=== PATIENT | male | born 2000 | race Caucasian/White ===

== ENCOUNTER 2021-06-20 16:41 | Emergency (ER) | payer OTHER, BC, SELFPAY ==
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
[2021-06-20 18:14] VITALS: BP 143/79; PULSE 65; RESP 16; TEMP 36.4; O2SAT 100; BMI 19.3
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
[2021-06-20] MEDS: Ibuprofen 600 MG TABLET PO (22:59)
== END 2021-06-20 23:39 | disposition home or self-care (01) ==
PROVIDERS: Emergency Provider Student in an Organized Health Care Education/Training Program
DX: S39.012A Strain of muscle, fascia and tendon of lower back, initial encounter (principal); M25.512 Pain in left shoulder; M25.511 Pain in right shoulder; V43.62XA Car passenger injured in collision with other type car in traffic accident, initial encounter; Y93.9 Activity, unspecified; Y92.410 Unspecified street and highway as the place of occurrence of the external cause; Y99.9 Unspecified external cause status; Z79.899 Other long term (current) drug therapy
CPT/HCPCS: 73030; 99283

== ENCOUNTER 2024-07-09 15:46 | Outpatient (AMB) | payer OTHER, SELFPAY ==
--- OUTSIDE RECORDS SUMMARY | 2024-07-09 15:48 | XMS_ITS | Encounter Summary ---
Author Organization [facility] Address [address] [place] [phone] Phone Care Team Providers Care Ice Delivery Driver Name Role Phone Elyssa Anderson MD Primary Care Provider [phone] Encounter Details Date Type Department Care Team (Late st Contact Info) Description 10/05/2016 Conversion Encounter [facility] [place] [address] [place] [address] Social History Tobacco Use Types Packs/Day Years Used Date Smoking Tobacco: Never Comments:Never smoker Sex and Gender Information Value Date Recorded Sex Assigned at Not on file Legal Sex Male 4:56 PM EDT Gender Identity Not on file Sexual Orientation Not on file documented as of this encounter Plan of Treatment Not on file documented as of this encounter Visit Diagnoses Not on filedocumented in this encounter Care Teams Ice Delivery Driver Relationship Specialty Start Date End Date Elyssa Anderson MD [address] [place] [address] PCP - General 09/29/16 05/30/22 documented as of this encounter
--- OUTSIDE RECORDS SUMMARY | 2024-07-09 15:48 | XMS_ITS | Encounter Summary ---
Author Organization [facility] Address [address] [place] [address] Phone Care Team Providers Care Rug Cleaning Supervisor Name Role Phone Elyssa Anderson MD Primary Care Provider [phone] Encounter Details Date Type Department Care Team (Late st Contact Info) Description 08/09/2011 [place] [facility] [place] [address] [place] [address] Family Medicine, Physician [address] [place], [place] [phone] Social History Tobacco Use Types Packs/Day Years Used Date Smoking Tobacco: Never Assessed Sex and Gender Information Value Date Recorded Sex Assigned at Not on file Legal Sex Male 4:56 PM EDT Gender Identity Not on file Sexual Orientation Not on file documented as of this encounter Plan of Treatment Not on file documented as of this encounter Visit Diagnoses Not on filedocumented in this encounter Care Teams Rug Cleaning Supervisor Relationship Specialty Start Date End Date Elyssa Anderson MD [address] [place] [address] [place] [address] PCP - General 09/29/16 05/30/22 documented as of this encounter
--- OUTSIDE RECORDS SUMMARY | 2024-07-09 15:48 | XMS_ITS | Encounter Summary ---
Author Organization [facility] Address [address] [place] [phone] Phone Care Team Providers Care Seo Consultant Name Role Phone Elyssa Anderson MD Primary Care Provider Encounter Details Date Type Department Care Team (Late st Contact Info) Description 07/18/2016 [place] [facility] [facility] [place] [address] [place] [address] Family Medicine, Physician [address] [place], [place] [phone] Social History Tobacco Use Types Packs/Day Years [...] on filedocumented in this encounter Care Teams Seo Consultant Relationship Specialty Start Date End Date Elyssa Anderson MD [address] [place] [address] PCP - General 09/29/16 05/30/22 documented as of this encounter
--- OUTSIDE RECORDS SUMMARY | 2024-07-09 15:48 | XMS_ITS | Encounter Summary ---
Author Organization [facility] Address [address] [place] [address] Phone Care Team Providers Care Manager Rfid Name Role Phone Elyssa Anderson MD Primary Care Provider [phone] Encounter Details Date Type Department Care Team (Late st Contact Info) Description 05/31/2009 Documentation [facility] [place] [address] [place] [address] Family Medicine, Physician [address] [place], [place] [phone] Social History Tobacco Use Types Packs/Day Years [...] on filedocumented in this encounter Care Teams Manager Rfid Relationship Specialty Start Date End Date Elyssa Anderson MD [address] [place] [address] [place] [address] PCP - General 09/29/16 05/30/22 documented as of this encounter
--- OUTSIDE RECORDS SUMMARY | 2024-07-09 15:48 | XMS_ITS | Clinical Summary ---
Author Organization [facility] Address [address] [place] [address] Phone Care Team Providers Care Machine Stone Polisher Apprentice Name Role Phone Unavailable Primary Care Provider Unavailabl e Allergies No known active allergies Medications amoxicillin 500 MG tabletIndicatio ns:Mitral valve prolapse Take 4 tablets (2,000 mg total) by mouth as needed (1 hour prior to dental appointment) for up to 1 dose. 4 tablet 4 10/22/2019 Active Active Problems Problem Noted Date Diagnosed Date Anxiety disorder 12/05/2019 Anxiety 12/04/2019 Joint hyperextensibility of multiple sites 09/27 Overview (09/27/2018): Not a bother Pectus excavatum 09/27/2018 Overview (09/27/2018): Not a problem Mitral valve prolapse 10/19/2017 Overview (10/22/2019): Dental prophylaxis recommended Assessment & Plan (09/30/2018 10:00 PM EDT): To see Dr. Galarza again soon. He said the [place] score is only 3, but has at least a 6 based on thumb and wrist signs, pectus, MVP, and facial features. Attention deficit hyperactiv ity disorder (ADHD), combined type 11/19/2013 Assessment & Plan (09/27/2018 2:16 PM EDT): Controls it without meds, but ?if ADD got in the way. Stay away from artificial food coloring. See me for follow up in about 4 months. Immunizations Immunization Administration Dates Next Due DTaP 5 06/20/2004, 1,1999,09/26,1999 H1N1 02/08/2009,01/07/2009 HPV, Quadrivalent 01/23/2013,09/23/2012,07/25/19 13 Hep A, ped/adol 01/26/2014,07/25/2013 Hep B, Adult 10/22/2019 Hep B, ped/adol 1999,1999,1999 Hib (PRP-T) 08/15/2000, 0,1999,06/24 IPV 06/20/2004, 1,1999,06/24 Influenza, injectable, quadr ivalent, preservative free 10/22/2019,12/29/2015,10/12/2014 Influenza, injectable, trivalent 12/20/2004 Influenza, intranasal, quadrivalent 11/19/2013,1 02/24/2012 Influenza, intranasal, trivalent 01/30/2012 MMR 06/20/2004,08/15/2000 Meningococcal B Trumenba 10/22/2019,10/10/2017 Meningococcal Conj (Menactra) MCV4P 12/29/2015,0 05/09/2010 Tdap 05/09/2010 Varicella 10/28/2007,06/21/2000 Family History Relation Name Status Comments Father Alive Father: Alive a nd well Half-Brother Alive Half brother (M ): ADD/ADHD Half-Sister Alive Half sister (M) : Fibromyalgia, Alive and well Mother Alive Mother: Thyroid disease Sister Alive Sister: Alive a nd well Social History Tobacco Use Types Packs/Day Years Used Date Smoking Tobacco: Never Smokeless Tobacco: Never Comments:Never smoker Alcohol Use Standard Drinks/Week Comments No 0 (1 standard drink = 0.6 oz pur e alcohol) Hunger/Food Answer Date Recorded In the last 12 months, did y ou or your family ever eat less than you felt you should because there wasn't enough money for food? No 10/22/2019 Stable Housing Answer Date Recorded Are you worried that in the next 2 months you may not have stable housing? No 10/22/2019 Transportation Concerns Answer Date Rec orded In the last 12 months, have you or your family ever had to go without healthcare because you didn't have a way to get there? No 10/22/2019 Hazards in Home Answer Date Recorded Think about the place you li ve. Do you have problems with any of the following? Pests (mice or roaches), mold, no/not working smoke detectors, water leaks, no window guards. No 2019 Financing Utilities Answer Date Recorde d In the last 12 months, has t he electric, gas, oil, or water company threatened to shut off your services in your home? No 10/22/2019 Safety at Home Answer Date Recorded Are you or your family worried about feeling saf e in your home? No 10/22/2019 Outside Support Answer Date Recorded Do you feel that you need mo re support from other people or programs to help you care for yourself or your family? No 10/22/2019 Understanding Health Concerns Answer Da te Recorded Do you need help understandi ng your or your child's healthcare needs (diagnosis, medications, plan, etc.)? No 10/22/2019 Financing Health Concerns Answer Date R ecorded In the last 12 months, was t here a time when your child needed to see a doctor or get medications or supplies but could not because of cost? No 10/22/2019 Missing School or Work Answer Date Gabriel rded Did you or your child miss s chool or work because of a health problem that could have been avoided? No 10/22/2019 Sex and Gender Information Value Date Recorded Sex Assigned at Not on file Legal Sex Male 4:56 PM EDT Gender Identity Not on file Sexual Orientation Not on file Last Filed Vital Signs Vital Sign Reading Time Taken Comments Blood Pressure 118/81 10/22/2019 8:38 AM EDT Pulse 64 10/22/2019 8:38 AM EDT Temperature 36.4 ??C (97.5 ??F) 10/22/2019 8:38 AM ED T Respiratory Rate - - Oxygen Saturation - - Inhaled Oxygen Concentration - - Weight 68.9 kg (151 lb 12.8 oz) 10/22/2019 8:38 AM EDT Height 190.5 cm (6' 3 ) 10/22/2019 8:38 AM EDT Body Mass Index 18.97 10/22/2019 8:38 AM EDT Plan of Treatment Health Maintenance Due Date Last Done Comments DTaP,Tdap,and Td Vaccines (7 - Td or Tdap) 05/09/2020 05/09/2010, 06/20/2004, 12/13/2000, Additional history exists Influenza Vaccines (#1) 2023 10/22/19 20, 12/29/2015, 10/12/2014, Additional history exists COVID-19 Vaccine ( season) 2023 03/03/2021, 06/04/2020, 05/12/2020 HIB Vaccines Completed 08/15/2000, 10/21, 1999, Additional history exists IPV Vaccines Completed 06/20/2004, 04/2000, 1999, Additional history exists MMR Vaccines Completed 06/20/2004, 08/15/2000 Varicella Vaccines Completed 10/28/2007, 06/21/2000 HPV Vaccines Completed 01/23/2013, 06/2012, 07/24/2012 Hepatitis A Vaccines Completed 01/26/2014, 07/26/19 14 Meningococcal Vaccine Completed 12/29/2015, 011 Hepatitis B Vaccines Completed 10/22/2019, 1999, 1999, Additional history exists Men B Vaccine Completed 10/22/2019, 10/10/2017 Pneumococcal Vaccine Aged Out No long er eligible based on patient's age to complete this topic Insurance [facility]
--- NOTE | 2024-07-09 15:53 | A.OFFPC_ITS ---
Vital Signs 07/09/24 15:55 Height 6 ft 2.02 in Weight 205 lb 4 oz BMI 26.3 BP 138/80 Blood Pressure Location Lt brachial Position Sitting Pulse 71 Pulse Source Pulse Oximeter Temp 97.3 F Temp Source Temporal Artery Scan Pulse Oximetry (%) 98 Oxygen Delivery Method Room Air Intake Visit Reasons: establish care Intake Note: Patient is a new patient here to establish care for ADHD. Transferring care from [place] [facility] ([facility]). Medical records have been requested and have not received. Lace Roller Required: No Shadow Graph Weight Operator: Not Required per policy Accompanied by: Self / Same As Patient Allergies No Known Allergies [No Known Allergies*] Allergy (Verified 07/09/24 16:05) Medication List - Last Reconciled 07/09/24 by Megan Cee PA-C No Known Home Meds Tobacco use date assessed: 07/09/24 Dental Screening Dental Screen Date: 07/09/24 Did you have a dental visit in the last 12 months?: No Did you have a dental problem in the last 6 months where you did not have access to dental care?: No Was dental information given to patient?: Patient has dentist HPI establish care HPI Details 24 year old male coming to the office fo r the first time. Presenting with a chronic cough. The patient reports onset of symptoms including a persistent cough since approximately December last year, accompanied by fever, voice loss, and worsened by vocal strain. Evaluations have included a prior diagnosis of bronchitis, which responded poorly to treatment. Voice loss and cough episodes correlate with extensive vocal use and show chronicity despite improvement in fever episodes. He does admit to several URIs over the last year. 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 PENDING SALE TO [facility] Medical History No known health problems Surgical History History of tooth extraction Family History Father Substance use disorder Maternal Grandmother Breast cancer Social History (Reviewed 07/09/24 @ 16:23 by ROGERIO Edwards Housing: House Alcohol intake: current Alcohol intake frequency: a few times a week Patient Tobacco Use Status: Never used Tobacco e-Cigarette/Vaping Use: Never Used Second Hand Smoke Exposure: No service: No Current occupational status: employed Current occupation: Teacher - music Cognitive needs: No Hearing needs: No Vision needs: Yes (Glasses) Questionnaire PHQ-9 Over the last 2 weeks, how often have you been bothered by any of the following problems? 1. Little interest or pleasure in doing things: not at all 2. Feeling down, depressed, or hopeless: not at all 3. Trouble falling or staying asleep, or sleeping too much: not at all 4. Feeling tired or having little energy: not at all 5. Poor appetite or overeating: not at all 6. Feeling bad about yourself - or that you are a failure or have let yourself or your family down: not at all 7. Trouble concentrating on things, such as reading the newspaper or watching television: not at all 8. Moving or speaking so slowly that other people could have noticed. Or the opposite - being so fidgety or restless that you have been moving around a lot more than usual: not at all 9. Thoughts that you would be better off or of hurting yourself in some way: not at all Total score: 0 Depression Screening Interpretation: Negative Depression Screening Done: Yes Source: Developed by Drs. Rommel Figueroa, Garima Acosta, Abhi Mae and colleagues, with an educational leonela from [employer]. Thrive Questionnaire Date Thrive assessed: 07/09/24 I am a: Patient What is your living situation today?: I have a steady place to live Within the past 12 months, did the food you bought not last and you didn't have the money to get more?: Never true Within the past 12 months, did you worry whether your food would run out before you got money to buy more?: Never true Do you have trouble paying for medicines?: No Do you have trouble getting transportation to medical appointments?: No Do you have trouble paying your heating and electricity bill?: No Do you have trouble taking care of your child, family member or friend?: No Do you have trouble with day-to-day activities such as bathing, preparing meals, shopping, managing finances, etc.?: No Are you currently unemployed and looking for a job?: No Are you interested in more education?: No Please select the resources that you would like help with: None Currently or been in a relationship where the following occur: No concerns reported THRIVE Score: 0 AUDIT C Alcohol Use Questionnaire (AUDIT-C) 1. How often do you have a drink containing alcohol?: 2-3 times a week 2. How many drinks containing alcohol do you have on a typical day when you are drinking?: 1 or 2 Total Score: 3 ADRIENNE-7 AMB Questionnaire ADRIENNE-7 Date ADRIENNE - 7 assessed: 07/09/24 Feeling nervous, anxious, or on edge: 0 = Not at all Not being able to stop or control worryin = Not at all Worrying too much about different things: 0 = Not at all Trouble relaxin = Not at all Being so restless that it is hard to sit still: 0 = Not at all Becoming easily annoyed or irritable: 0 = Not at all Feeling afraid as if something awful might happen: 0 = Not at all Total ADRIENNE-7 score (0-4 normal; 5-9 mild; 10-14 moderate; 15-21 severe): 0 Source: Developed by Drs. Rommel Figueroa, Garima Acosta, Abhi Mae and colleagues, with an educational leonela from [employer]. ADRIENNE-7 Assessment Billing ADRIENNE-7 Assessment Tool: ADRIENNE-7 Assessment 46919 Review of Systems Const Denies body aches, Denies chills, Denies fever(s), Denies headache(s) and Denies poor appetite Eyes Reports no additional complaints ENT Denies dysphagia, Denies dizziness, Denies headache(s) and Denies odynophagia Card Denies chest pain, Denies syncope, Denies edema, Denies irregular heart rhythm, Denies lightheadedness and Denies dyspnea Resp Reports cough, Denies hemoptysis, Denies excessive phlegm production and Denies dyspnea GI Denies abdominal pain, Denies constipation, Denies dysphagia, Denies diarrhea, Denies nausea, Denies odynophagia and Denies vomiting Reports no additional complaints Musc Reports no additional complaints and Denies abnormal gait Skin/Breast Reports system reviewed and no additional complaints, except as documented Neuro Denies abnormal gait, Denies dizziness, Denies syncope and Denies headache(s) Psych Reports no additional complaints Physical exam (Primary Care) Vital Signs: Last Vital Signs Temp 97.3 F 07/09/24 15:55 Pulse 71 07/09/24 15:55 BP 138/80 07/09/24 15:55 Pulse Ox 98 07/09/24 15:55 Oxygen Delivery Method Room Air 07/09/24 15:55 BMI result Body Mass Index 26.3 Tobacco/Smoking Status: Tobacco use Status Tobacco use date assessed 07/09/24 07/09/24 16:04 Patient Tobacco Use Status Never used Tobacco 07/09/24 16:04 e-Cigarette/Vaping Use Never Used 07/09/24 16:04 PHQ-9: PHQ-9 Score PHQ-9: Total score 0 07/09/24 16:04 Depression Screening Interpretation: Negative Thrive Assessment: Date of Thrive Assessment Date Thrive assessed 07/09/24 07/09/24 16:04 Currently or been in a relationship where the following occur: No concerns reported Const General: cooperative, healthy appearing, comfortable and no acute distress Orientation/consciousness: patient oriented x3 HENMT Head: Yes normocephalic Ears: hearing grossly normal bilaterally General nose exam: Normal external nose present Eyes General: appearance normal, both eyes and all related structures Conjunctivae: conjunctivae normal Neck Neck: Yes full ROM and Yes no lymphadenopathy Resp Effort & Inspection: normal respiratory effort Auscultation: clear to auscultation bilaterally, no crackles, no rales, no rhonchi and no wheezes Cardio Rate: regular rate Rhythm: regular rhythm Skin General skin exam: no rashes or lesions noted Neuro General: patient oriented x3 Gait exam (Neuro): Normal gait present Extrem General: Yes normal to inspection, Yes full ROM and No edema Psych Affect: normal affect Attitude: cooperative Insight: Good insight present (Psych) Judgement: Good judgement present (Psych) Coding Level of Care Code New Pt Level 4 (89209) Diagnoses Cough R05.9 ADHD F90.9 Additional Codes ADRIENNE-7 Assessment Billing - ADRIENNE-7 Assessment Tool: ADRIENNE-7 Assessment 20318 ([id number]) Assessment & Plan Assessment & Plan (1) Cough: Code(s): R05.9 - Cough, unspecified Category: Medical Plan: A pulmonary function test and chest x-ray will be conducted to explore potential underlying causes of chronic cough, such as asthma or structural abnormalities. The implementation of daily antihistamine therapy, like Claritin, is advised to mitigate suspected allergy-related symptoms. I have requested blood work to provide additional insights into his chronic symptoms. Monitoring of acid reflux and accounting for dietary influences remains essential, with revisits planned as tests and assessments necessitate further clinical deliberation. A three- month follow-up will review outcomes from diagnostic tests, assessing any persistent or emergent issues requiring attention. Patient's denies any significant symptoms of acid reflux and unlikely to be the underlying cause of cough. (2) ADHD: Code(s): F90.9 - Attention-deficit hyperactivity disorder, unspecified type Category: Medical Plan: Patient is not currently medicated and feels good without medication at this time. Plan This note was constructed using voice recognition software. While every effort has been made to ensure accuracy and sander setter, still areas may have been included sometimes these areas may affect the content or meeting of the given symptoms. Total time spent caring for the patient today was 30 minutes. This includes time spent before the visit reviewing the chart, time spent during the visit, and time spent after the visit and documentation. Patient was informed and verbally consented to the use of an ambient scribe for clinic note documentation during this visit. Orders: Orders TSH reflex Free T4 07/09/24. - Attention-deficit hyperactivity disorder, unspecified type, Z00.00 - Encounter for general adult medical examination without abnormal findings Vitamin B12 and Folate 07/09/24 Z00.00 - Encounter for general adult medical examination without abnormal findings, Z13.21 - Encounter for screening for nutritional disorder Free T4 (Free Thyroxine) 07/09/24. - Attention-deficit hyperactivity disorder, unspecified type, Z00.00 - Encounter for general adult medical examination without abnormal findings Comprehensive Met. Panel 07/09/24. - Attention-deficit hyperactivity disorder, unspecified type, Z00.00 - Encounter for general adult medical examination without abnormal findings Complete Blood Count Auto Diff 07/09/24. - Attention-deficit hyperactivity disorder, unspecified type, Z00.00 - Encounter for general adult medical examination without abnormal findings Vitamin D 25-OH Total 07/09/24 Z00.00 - Encounter for general adult medical examination without abnormal findings, Z13.21 - Encounter for screening for nutritional disorder XR chest 2V 07/09/24 R05.9 - Cough, unspecified PFT pulmonary function test 07/09/24 R05.9 - Cough, unspecified Medications: Discontinued cyclobenzaprine Discontinued Reason: Patient no longer taking 10 mg PO TID PRN 10 tabs 0RF muscle spasm lidocaine 5% leave on most painful area for up to 12 hrs Discontinued Reason: Patient no longer taking 1 patch topical DAILY 15 ea 0RF hydroxyzine HCl Discontinued Reason: Patient no longer taking 25 mg PO TID PRN 14 tabs 0RF anxiety ibuprofen Discontinued Reason: Patient no longer taking 600 mg PO Q8H PRN 14 tabs 0RF pain
[2024-07-09 15:55] VITALS: BP 138/80; PULSE 71; TEMP 36.3; O2SAT 98; BMI 26.3
== END 2024-07-09 16:33 | disposition home or self-care (01) ==
LOC: HO.HMCH 15:46
DX: R05.9 Cough, unspecified (principal); F90.9 Attention-deficit hyperactivity disorder, unspecified type

== ENCOUNTER → 2024-07-09 15:46 | Outpatient (BNVA) | payer OTHER, SELFPAY | DX: R05.3 Chronic cough (principal); F90.9 Attention-deficit hyperactivity disorder, unspecified type | CPT/HCPCS: 96127 ==

== ENCOUNTER 2024-10-01 07:49 | Outpatient (REF) | payer OTHER, SELFPAY ==
--- OUTSIDE RECORDS SUMMARY | 2024-10-01 07:51 | XMS_ITS | Encounter Summary ---
Author Organization [facility] Address [address] [place] [id number] Phone Care Team Providers Care Rock Cutter Name Role Phone Elyssa Anderson MD Primary Care Provider [phone] Encounter Details Date Type Department Care Team (Late st Contact Info) Description 07/13/2009 Documentation [facility] Family Medicine [address] [place] [address] Family Medicine, Physician [address] [place], [place] [id number] Social History Tobacco Use Types Packs/Day Years [...] on filedocumented in this encounter Care Teams Rock Cutter Relationship Specialty Start Date End Date Elyssa Anderson MD [address] [place] [address] [place] [id number] PCP - General 09/29/16 05/30/22 documented as of this encounter
--- NOTE | 2024-10-01 08:03 | PFT_ITS ---
Flows: FEV1: 91 % of predicted at 4.77 L FVC: 87 % of predicted at 5.50 L FEV1/FVC: 87 % Bronchodilator response: Absent Volumes: Total lung capacity: 87 % of predicted at 6.97 L Residual volume: 91 % of predicted at 1.55 L Slow vital capacity: 87 % of predicted at 5.42 L Expiratory reserve volume: 71 % of predicted at 1.53 L Diffusion capacity: Normal Impression: No obstructive or restrictive ventilatory defect. No bronchodilator response. Essentially normal pulmonary function test. MTDD
[2024-10-01 08:46] VITALS: PULSE 59; O2SAT 97
== END 2024-10-01 07:50 | disposition home or self-care (01) ==
LOC: HO.RESP 07:49
DX: R05.9 Cough, unspecified (principal)
CPT/HCPCS: 94010; 94640; 94727; 94729

== ENCOUNTER → 2024-10-01 08:03 | Outpatient (BNV) | payer OTHER, SELFPAY | PROVIDERS: Visit Provider Internal Medicine Pulmonary Disease | DX: R05.9 Cough, unspecified (principal) | CPT/HCPCS: 94060; 94727; 94729 ==